=== PATIENT | male | born 1975 | race African-American/Black ===

== ENCOUNTER 2024-07-30 12:54 | Emergency (ER) | payer OTHER ==
[~2024-07-30] VITALS: Ht 188 cm; Wt 114.0 kg
[2024-07-30 13:35] VITALS: PULSE 81; RESP 19; O2SAT 96
[2024-07-30] MEDS: ALBUTEROL (0.083%) 2.5MG/3ML NEB HHN STA (13:35)
[2024-07-30] MEDS: IPRATROPIUM BROMIDE (0.02%) 0.5MG/2.5ML NEB HHN STA (13:36)
[2024-07-30] MEDS: MAGNESIUM 2 G PREMIX 50 ML IV STA (13:42)
[2024-07-30] MEDS: SODIUM CHLORIDE 0.9% 1,000 ML IV ONE (13:42)
[2024-07-30] MEDS: METHYLPREDNISOLONE SOD SUCC 125MG/2ML (ACT-O-VIAL) IV STA (13:42)
[2024-07-30 13:45] LABS: BASOPHILS % 0.7 % (0.0-2.0); HEMATOCRIT. 45.9 % (42.0-52.0); HEMOGLOBIN. 14.7 g/dL (14.0-18.0); LYMPHOCYTES % 29.3 % (20.0-50.0); MEAN CORPUSCULAR HEMOGLOBIN 26.5 pg (28.0-32.0); MEAN CORPUSCULAR VOLUME 82.8 fL (80.0-94.0); MEAN PLATELET VOLUME 9.3 fl (7.4-10.4); MONOCYTES % 6.5 % (2.0-8.0); NEUTROPHILS % 60.5 % (40.0-76.0); PLATELET 356 x1000/uL (130-400); RED BLOOD CELL COUNT 5.54 mill/uL (4.7-6.1); RED CELL DISTRIBUTION WIDTH 15.3 % (11.6-14.6); WHITE BLOOD COUNT 18.6 x1000/uL (4.5-11.0)
[2024-07-30 13:51] LABS: CHLORIDE 109 mEq/L (98-107); POTASSIUM 3.5 mEq/L (3.5-5.1); SODIUM 142 mEq/L (136-145)
[2024-07-30 13:52] LABS: CALCIUM 8.9 mg/dL (8.7-10.4); CARBON DIOXIDE 27 mEq/L (21-32)
[2024-07-30 13:57] LABS: CREATININE 1.3 mg/dL (0.6-1.3); GLUCOSE 126 mg/dL (70-105); UREA NITROGEN BLOOD 6 mg/dL (9-23)
[2024-07-30 13:59] LABS: ALANINE AMINOTRANSFERASE 11 IU/L (10-49); ALBUMIN 4.3 g/dL (3.2-4.8); ASPARTATE AMINOTRANSFERASE 16 IU/L (<34); BILIRUBIN TOTAL 0.7 mg/dL (0.1-1.0); PROTEIN TOTAL 7.4 g/dL (6.0-8.3); TROPONIN I HIGH SENSITIVITY 43 ng/L (3.0-53)
[2024-07-30 15:15] VITALS: BP 120/69; PULSE 95; RESP 16; TEMP 36.89184; O2SAT 98
[2024-07-30] MEDS ORDERED: P50 MT (15:23)
[2024-07-30] MEDS ORDERED: ALBU18HF2 IH (15:23)
== END 2024-07-30 15:50 | disposition left against medical advice (07) ==
LOC: ER 12:54
DX: J45.901 Unspecified asthma with (acute) exacerbation (principal)
CPT/HCPCS: 80053; 83880; 85025; 84484; 36415; 71045; 93005; 94644; 96365; 96375; 99285; J3475; J2919; Z7610 ×4; J7030; 94640